=== PATIENT | male | born 1960 | race Caucasian/White ===

== ENCOUNTER 2016-07-11 20:15 | Inpatient (IN) | payer SELFPAY ==
--- NOTE | ~2016-07-11 | OP ---
Record Of [address] [place]. [address] NAME: DENITA BEAVER : 56 STATUS : ADM IN [facility]#: [id number] AGE: 55 ADM/REG DATE : 07/11/16 MR#: [id number] REPORT SERV DATE: 07/18/16 DICTATED BY: MICHELLE KELLY DATE: 07/18/16 REPORT STATUS : Draft TRANSCRIBED BY: MODL DATE: 07/18/16 DATE OF PROCEDURE: 07/18/2016 PREOPERATIVE DIAGNOSES: 1. New onset of chronic lymphocytic leukemia. 2. Right index finger Klebsiella oxytocin and Pseudomonas aeruginosa abscess, status post multiple I and D's. POSTOPERATIVE DIAGNOSES: 1. New onset of chronic lymphocytic leukemia. 2. Right index finger Klebsiella oxytocin and Pseudomonas aeruginosa abscess, status post multiple I and D's. PROCEDURES: Right index finger tip: 1. Repeat cultures. 2. Repeat irrigation and debridement. 3. Wound closure. SURGEON: Michelle Kelly M.D. ENVELOPE STAMPING MACHINE OPERATOR: Tate. ANESTHESIA: Local MAC. ESTIMATED BLOOD LOSS: 1 mL. COMPLICATIONS: None. DISPOSITION: The patient tolerated the procedure well and was brought to recovery room in stable condition. PROCEDURE NOTE: The patient was brought to the operating room and placed in supine position. After IV sedation was given, a surgical timeout was performed. All were in agreement. 15 mL of a solution containing 10 mL of 1% lidocaine plain and 10 mL of 0.5% Marcaine plain was then was injected at the base of the finger after prepping the area. Afterwards, the rest of the dressing was removed and the right upper extremity distal to the elbow was prepped and draped in the usual sterile manner. A finger tourniquet was placed at the base of the finger. The sutures were removed. Cultures were taken. Wound was inspected. A rongeur was used to remove just the edges of the tissue that was nonviable and then 1 L of normal saline was used to irrigate the wound via pulse lavage. The wound was closed with 3-0 nylon suture in the tourniquet cut, which was placed prior to removal of the sutures, was removed. A sterile dressing was applied and the patient was taken out of IV sedation and brought to recovery room in stable condition. Record Of [facility] [address] [place]. [address] NAME: DENITA BEAVER : 56 STATUS : ADM IN PAT#: [id number] AGE: 55 ADM/REG DATE : 07/11/16 MR#: [id number] REPORT SERV DATE: 07/18/16 DICTATED BY: MICHELLE KELLY DATE: 07/18/16 REPORT STATUS : Draft TRANSCRIBED BY: LEBRON DATE: 07/18/16 /LEBRON Michelle Kelly M.D. / [id number] CC: Jim Aviles MD
--- NOTE | ~2016-07-11 | HP ---
History And Physical [facility] [address] [facility] [place]. [address] NAME: DENITA BEAVER : 56 STATUS : ADM IN [facility]#: [id number] AGE: 55 ADM/REG DATE : 07/11/16 MR#: [id number] REPORT SERV DATE: 07/12/16 DICTATED BY: JOEL HACKETT DATE: 07/11/16 REPORT STATUS : Draft TRANSCRIBED BY: MODJeniffer DATE: 07/11/16 DATE OF ADMISSION: 07/11/2016 POINT OF ENTRY: [facility]. PRIMARY CARE PHYSICIAN: Mynor Molina [place]. CHIEF COMPLAINT: Right second finger swelling and pain. HISTORY OF PRESENT ILLNESS: Mr. Beaver is a 55-year-old gentleman with no significant previous medical history, who was recently admitted to a hospital down in [place], [place], where he lives for distal right second finger abscess requiring incision and drainage. The patient now presents with worsening swelling and pain of the same right second finger. The patient states that he was admitted on 07/04/2016 for right second finger distal swelling and pain, underwent what sounds like an I and D of an abscess on 07/05/2016 and then left against medical advice on 07/06/2016 as he needed to go to [place] to see his daughter graduate from medical school. The physicians at the hospital in [place] wanted him to stay for a bone marrow biopsy for what sounds to be as workup for leukopenia. The patient states that he was not discharged on any antibiotics or pain medications. Since leaving against medical advice, he has continued to wear a bandage most time as well as bathing his finger twice a day in peroxide solution. He denies any drainage from the finger or fevers, does state progressive worsening pain and swelling of the distal part of the right second finger prompting his presentation to the emergency department. Initial evaluation in the emergency department notable for a white count of 4700, however, an ANC of 90 with 93% lymphocytes. Remainder of his labs was otherwise unremarkable. X- rays were concerning for possible osteomyelitis of the distal tip of the right second finger. The patient was subsequently admitted to the Hospitalist Service for further evaluation and management. REVIEW OF SYSTEMS: Comprehensive review of systems otherwise negative unless listed in history of present illness. PREVIOUS MEDICAL HISTORY: Right second finger cellulitis and abscess status post I and D. SURGICAL HISTORY: 1. Right second finger I and D. 2. L4-L5 diskectomy and fusion x3. 3. Lens replacement. 4. Tonsillectomy. ALLERGIES: NO KNOWN DRUG ALLERGIES. History And Physical [address] [place]. [address] NAME: DENITA BEAVER : 56 STATUS : ADM IN PAT#: [id number] AGE: 55 ADM/REG DATE : 07/11/16 MR#: [id number] REPORT SERV DATE: 07/12/16 DICTATED BY: JOEL HACKETT DATE: 07/11/16 REPORT STATUS : Draft TRANSCRIBED BY: LEBRON DATE: 07/11/16 HOME MEDICATION: Ibuprofen 400 mg five times daily. SOCIAL HISTORY: Smokes about a half pack per day. Denies illicits. Does have one to two glasses of wine nightly. FAMILY MEDICAL HISTORY: Mother with diabetes. Father , but not sure what he passed from. Siblings with diabetes as well as end-stage renal disease secondary to diabetes. LABORATORIES AND IMAGIN. White count is 4.7, hemoglobin is 7.8, hematocrit is 31.2, platelet count is 157 with 93% lymphocytes and ANC of 90. 2. Lactic acid 0.7. 3. Sodium is 139, potassium 4.1, chloride 105, carbon dioxide 31, BUN 18, creatinine 1.04, glucose is 96, calcium is 8.7, protein 6.2, albumin is 3.6, bilirubin is 0.4, ALT is 28, AST 11, alkaline phosphatase is 113, lactic acid 0.7. 4. Right hand films per my review shows swelling of the distal tip of the right second finger with some concern for cortical volume loss. We will need to follow up formal Radiology read. PHYSICAL EXAMINATION: VITAL SIGNS: Temperature is 98.2 degrees Fahrenheit, pulse is 89, respirations 20, saturating 98% on room air, and blood pressure 103/58. GENERAL: The patient is awake, alert, in no acute distress, resting comfortably in bed. He is a well-developed and well-nourished male. HEENT: Atraumatic and normocephalic. Moist mucous membranes. Pupils equal, round, reactive to light and accommodation. Extraocular eye movements are intact. No scleral icterus. NECK: No jugular venous distention. No carotid bruits. CARDIAC: Regular rate and rhythm. No murmurs, rubs, or gallops. Normal S1 and S2. LUNGS: Clear to auscultation bilaterally. No wheezes, rhonchi, or rales. ABDOMEN: Soft, nontender, nondistended with good bowel sounds. No rebound, guarding, or rigidity. EXTREMITIES: Warm and well perfused. No cyanosis, clubbing, or edema. The right second finger distal tip does show some diffuse swelling. Evidence of prior incision and drainage underneath the nail bed is evident. There is no palpable fluid collection or subcutaneous air, does not appreciate any spontaneous purulent drainage. It is definitely tender to palpation, but no evidence of any lymphangitic spread. NEURO: Alert and oriented x3. Cranial nerves II through XII grossly intact. Speech is normal. Gait not assessed. ASSESSMENT: Mr. Beaver is a 55-year-old male, who presents with persistent versus recurrent distal right second finger infection and abscess with concern for possible osteomyelitis, also instantly found to have evidence of neutropenia. PROBLEM LIST: 1. Right second finger infection and abscess with concern for osteomyelitis. 2. Neutropenia. History And Physical [address] [address] NAME: DENITA BEAVER : 56 STATUS : ADM IN [facility]#: [id number] AGE: 55 ADM/REG DATE : 07/11/16 MR#: [id number] REPORT SERV DATE: 07/12/16 DICTATED BY: JOEL HACKETT DATE: 07/11/16 REPORT STATUS : Draft TRANSCRIBED BY: LEBRON DATE: 07/11/16 3. Active tobacco abuse. PLAN: 1. Right second finger infection. We will place the patient empirically on broad-spectrum antibiotics of IV vancomycin and Zosyn given evidence of neutropenia. We will follow up blood cultures as well as obtain wound culture. We will consult Orthopedic Hand Surgery, Dr. Londono, who was contacted the ER by the medical staff here and will see the patient in the morning. We will make the patient nothing by mouth after midnight in the event the patient may need further debridement or incision and drainage. Checking ESR and CRP given concern for possible osteomyelitis. 2. Neutropenia, unclear etiology at this time of what caused neutropenia. His white count is within normal limits. He does have 93% lymphocytes as well as the patient reports a prior history of leukopenia at [facility] a week ago. We will try to obtain outside records from [facility]. We will consult Hematology for assistance. Place him on neutropenic precautions. 3. DVT prophylaxis. Lovenox subcutaneously. CODE STATUS: The patient wished to be full code. JCB/MODL Joel Hackett MD / [id number]
--- NOTE | ~2016-07-11 | OP ---
Record Of Operation [facility] [address] [place]. 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 PROCEDURE: 1. Right index finger. a. Repeat cultures. b. Distal P3 bone excision. 2. Wound closure. CELLO TEACHER: Cayetano Londono. ANESTHESIA: General. ESTIMATED BLOOD LOSS: Less than 1 mL. COMPLICATIONS: None. DISPOSITION: Patient tolerated the procedure well and was brought to the recovery room in stable condition. PROCEDURE NOTE: The patient was brought to the operating room and placed in supine position. After general anesthesia was administered. A pneumatic tourniquet was placed around the right proximal arm, and the right upper extremity distal to the tourniquet was exsanguinated and the tourniquet was inflated. The dressing was removed and the right upper extremity distal to the tourniquet was prepped and draped in usual sterile manner. A surgical timeout was performed and all were in agreement. Sutures were removed. Cultures were taken and a rongeur was used to debride the soft tissue as well as the remaining P3 bone. Afterwards, the wound was irrigated with a total of 3 L of normal saline via pulse lavage and then the skin edges were trimmed back, and the skin was closed with 3-0 nylon suture. A sterile dressing was applied and tourniquet was released. The patient tolerated the procedure well and was brought to the recovery room in stable condition. RM/LEBRON Michelle Kelly M.D. Record Of Operation [address] [address] NAME: DENITA BEAVER : 56 STATUS : ADM IN PAT#: [id number] AGE: 55 ADM/REG DATE : 07/11/16 MR#: [id number] REPORT SERV DATE: 07/14/16 DICTATED BY: MICHELLE KLELY DATE: 07/14/16 REPORT STATUS : Draft TRANSCRIBED BY: MODL DATE: 07/14/16 / [id number] CC: Harsh Arrieta MD
--- NOTE | ~2016-07-11 | HP ---
History And Physical [address] [place]. [address] NAME: RUDDY BEAVER : 56 STATUS : DIS IN PAT#: [id number] AGE: 55 ADM/REG DATE : 07/11/16 MR#: [id number] REPORT SERV DATE: 07/27/16 DICTATED BY: MICHELLE KELLY DATE: 07/12/16 REPORT STATUS : Draft TRANSCRIBED BY: MODL DATE: 07/12/16 DATE OF ADMISSION: 07/11/2016 REASON: Right index finger abscess with osteomyelitis at distal tip and neutropenia. 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 Sometime around between two to three weeks ago, he clipped his right index finger nail slightly close causing a little bleeding in the area. Then, sometime later, on 06/27/2016, he developed some problems with his gingivitis with an abscess and was started on amoxicillin as predicated by this . He rubbed the area of concern in his mouth with both index fingers, and this most likely to have inoculated his right index finger at the nail bed area. Over the next ensuing days, he started experiencing redness, pain, and swelling. He was admitted to the [facility] in [facility]. His white count upon admission was 3.3, and he later underwent an I and D of the right index finger by Dr. Mcdonough, hand surgeon. Subsequent white counts as per patient were 4.7, and then sometime later 2.2. He was treated with Zosyn and vancomycin. He was then sent to this hospital and admitted late evening 07/11/2016 for worsening index finger abscess and pain. White count upon admission was 4.7. X-rays were taken at the time of admission showed swelling in the index finger with concern of osteomyelitis. He underwent a bone marrow biopsy earlier today by Dr. Jeff Medeiros, pathologist, here at [facility] with results pending. In addition to a low white count, he is noted to have decreased hemoglobin, hematocrit, and platelets with the platelets being 142 and H and H 10.3 and 29.8. He denies any recent fever, chills, or any other open sores. PAST MEDICAL HISTORY: None except recently diagnosed pancytopenia-workup in progress. PAST SURGICAL HISTORY: Left eye lens implant six months ago, tonsillectomy and adenoidectomy age 3 and back surgery x3. SOCIAL HISTORY: Smokes half pack per day. Positive for EtOH but negative for recreational drug use. He is and his of 3 years, Jammie, they have 9 children ages 30 to 16. PHYSICAL EXAMINATION: VITALS: Temperature 98.2, respirations 16 and BP 103/58. GENERAL: Pleasant, concerned 55-year-old white male lying in bed, with a swollen tender finger, in no acute distress. HEENT: Normocephalic. Teeth with some evidence of gingivitis. Pharynx not injected. Sclerae anicteric. ABDOMEN: Soft, nontender. CARDIOVASCULAR: 2+ radial and ulnar pulses. 2+ DP and PT pulses. MUSCULOSKELETAL EXAM: C-spine nontender. Both shoulders, elbows, wrists, and all fingers except for the right index fingers with functional range of motion. Both hips, knees, and ankles with functional range of motion. Right index finger is swollen, and there is necrotic tissue at the tip. The nail plate is bulging up, and there was pus emanating from History And Physical [address] [place]. [address] NAME: RUDDY BEAVER : 56 STATUS : DIS IN PAT#: [id number] AGE: 55 ADM/REG DATE : 07/11/16 MR#: [id number] REPORT SERV DATE: 07/27/16 DICTATED BY: MICHELLE KELLY DATE: 07/12/16 REPORT STATUS : Draft TRANSCRIBED BY: MODL DATE: 07/12/16 the nail bed region. The distal tip has necrotic tissue and the redness goes up to the PIP level. There is decreased sensation in the finger. LABORATORY DATA: White count of 4.7, H and H 10.8 and 32.2, platelets 142. X-rays, multiple views, right hand portable, shows index finger swelling with loss of bone, definition of the P3 bone in keeping with osteomyelitis. IMPRESSION: 1. Pancytopenia of unclear etiology, workup in progress. 2. Right index finger abscess with osteomyelitis. PLAN: The patient will undergo multiple I and D's to eradicate this infection. He most likely require an amputation with definitive level to be determined by intraoperative findings. This was discussed with Ruddy and his , Jammie, and the risks and benefits of surgery to include , stroke, heart attack, worsening pain, and need for operations after healing the wounds were all discussed. No guarantees were made in regard to the ultimate success of the operation. He wished to proceed with surgery and will plan for this shortly. LEATHA/LEBRON Michelle Kelly M.D. / [id number] CC: Harsh Arrieta MD
--- NOTE | ~2016-07-11 | OP ---
Record Of Operation [facility] [address] [place]. [address] NAME: DENITA BEAVER : 56 STATUS : ADM IN [facility]#: [id number] AGE: 55 ADM/REG DATE : 07/11/16 MR#: [id number] REPORT SERV DATE: 07/13/16 DICTATED BY: MICHELLE KELLY DATE: 07/12/16 REPORT STATUS : Draft TRANSCRIBED BY: MODL DATE: 07/12/16 DATE OF PROCEDURE: 07/12/2016 PREOPERATIVE DIAGNOSES: 1. Pancytopenia of unclear etiology - workup in progress. 2. Right index finger abscess with tip necrosis and P3 osteomyelitis. POSTOPERATIVE DIAGNOSES: 1. Pancytopenia of unclear etiology - workup in progress. 2. Right index finger abscess with tip necrosis and P3 osteomyelitis. PROCEDURES: Right index finger: 1. Cultures. 2. Debridement of tissue and bone resulting in distal tip amputation. 3. Wound packing with vancomycin powder. SURGEON: Michelle Kelly M.D. ANESTHESIA: General. ESTIMATED BLOOD LOSS: 2 mL. COMPLICATIONS: None. SPECIMENS: Cultures of mid P3 bone was sent to microbiology and pathology with the latter to rule out osteomyelitis. DISPOSITION: The patient tolerated the procedure well and was brought to recovery room in stable condition. PROCEDURE NOTE: The patient was brought to the operating room and placed in supine position. After general anesthesia was administered, the right upper extremity distal to the elbow was prepped and draped in the usual sterile manner. A surgical time-out was performed, and all were in agreement. A finger tourniquet was placed at the base of the finger, and a 15-blade scalpel was then used to unroof the nail plate, which was bulging. Very minimal pus was noted from the area and the tissue was swollen. The P3 bone was soft and was easily cut by the knife, which was used to debride the area. A rongeur was then used to cut back the bone until firmer bone was reached in the more mid/proximal third of the bone. This bone was sent to pathology, and the rest of the tissue was sent for specimens. The wound was then irrigated with 3 L of pulse lavage, and the volar flap was contoured and then sewn back onto the dorsal skin after packing the area with vancomycin powder and removing the dorsal nail sterile matrix. Tourniquet was released. A sterile dressing was applied, and the patient was taken out of general anesthesia and brought to recovery room in stable condition. Record Of Operation [place] [place]. [address] NAME: DENITA BEAVER : 56 STATUS : ADM IN [facility]#: [id number] AGE: 55 ADM/REG DATE : 07/11/16 MR#: [id number] REPORT SERV DATE: 07/13/16 DICTATED BY: MICHELLE KELLY DATE: 07/12/16 REPORT STATUS : Draft TRANSCRIBED BY: LEBRON DATE: 07/12/16 /LEBRON Michelle Kelly M.D. / [id number]
--- NOTE | ~2016-07-11 | IDS ---
Interim Discharge Summary [facility] [address] [place]. [address] NAME: DENITA BEAVER : 56 STATUS : ADM IN [facility]#: [id number] AGE: 55 ADM/REG DATE : 07/11/16 MR#: [id number] REPORT SERV DATE: 07/19/16 DICTATED BY: CANDICE ARRIETA DATE: 07/17/16 REPORT STATUS : Draft TRANSCRIBED BY: MODL DATE: 07/17/16 ADMISSION DATE: 07/11/2016 DISCHARGE DATE: REASON FOR ADMISSION: Right 2nd digit osteomyelitis and pancytopenia. HISTORY OF PRESENT ILLNESS: Please refer Dr. Simental's history and physical dated 07/12/2016, for complete details regarding the patient's admission. In brief, the patient was admitted to hospice service for management and evaluation of his right 2nd digit cellulitis/osteomyelitis along with pancytopenia. HOSPITAL COURSE: Several issues were addressed. 1. Right 2nd finger cellulitis/osteomyelitis. The patient had a known I and D done down at [facility] for a cellulitis but was not diagnosed with an osteomyelitis at that time. He presented with worsening infection to this hospital as he was in town visiting his [id number]. Dr. Albert with Orthopedic hand was consulted. He had performed an I and D x2 with the first culture showing dual infection with Klebsiella and Pseudomonas. He had a repeat I and D done 2 days later on the which showed just sparse growth of Pseudomonas. He had been placed initially on vancomycin and Zosyn which was then tailored to Zosyn. Infectious Disease was consulted. Dr. Tucker had been following the patient for the past couple of days. His Zosyn has been discontinued as of 07/17/2016, with the initiation of oral ciprofloxacin which I anticipate is what the patient will go home with. Given by that he had a few sparse growth of Pseudomonas, I wonder if he may need a 3rd debridement but we will let Dr. Albert make that decision. 2. Pain secondary to osteomyelitis and infection, it is now controlled on narcotics. 3. Pancytopenia. The patient was diagnosed with pancytopenia when he was at [facility] but did not stay to get a bone marrow biopsy. Hematology and Oncology was consulted. He had a bone marrow biopsy done late last week. We are still waiting on the final pathology but is concerning for a possible lymphoma. He is getting a PET scan done today and hopefully by the end of the day, we will have a better idea of whether or not if he will need to be initiated on chemotherapy. Dr. Holland has been following his care in the hospital. DISPOSITION: Final disposition will be home pending any further debridements, and the patient has expressed that he can fly back and forth to have cancer treatment if desired or to follow up with an oncologist in or near [place]. Fortunately, we will be able to treat his osteomyelitis with oral ciprofloxacin instead of needing IV. Final disposition per Dr. Aviles who will assume care of this patient on 07/17/2016. INTERIM DIAGNOSES: 1. Right finger cellulitis/osteomyelitis with necrosis status post I and D x2. 2. Pancytopenia secondary to lymphoma. 3. Constipation. 4. Finger pain. PROCEDURES: Include consultation with Dr. Tucker, Infectious Disease; consultation with Interim Discharge Summary [address] [address] NAME: DENITA BEAVER : 56 STATUS : ADM IN [facility]#: [id number] AGE: 55 ADM/REG DATE : 07/11/16 MR#: [id number] REPORT SERV DATE: 07/19/16 DICTATED BY: CANDICE ARRIETA DATE: 07/17/16 REPORT STATUS : Draft TRANSCRIBED BY: MODL DATE: 07/17/16 Rohini Albert; consultation with Dr. Merrill Holland Hematology/Oncology. I and D x2. KARIN/LEBRON Candice Arrieta MD / [id number] CC: Candice Arrieta MD
--- NOTE | ~2016-07-11 | DS ---
Discharge Summary [facility] [address] [place] [place]. [address] NAME: DENITA BEAVER : 56 STATUS : DIS IN PAT#: [id number] AGE: 55 ADM/REG DATE : 07/11/16 MR#: [id number] REPORT SERV DATE: 07/22/16 DICTATED BY: SARAH CHIU DATE: 07/21/16 REPORT STATUS : Draft TRANSCRIBED BY: MODL DATE: 07/21/16 ADMISSION DATE: 07/11/2016 DISCHARGE DATE: 07/21/2016 ADDENDUM: This dictation is an addition to interim discharge summary dictated by Dr. Arrieta on 07/19/2016. The patient was taken back to the OR for right finger cultures, debridement, and samples to ensure there was no more source of infection. Status post procedure, the patient was returned back to the medical floor. He has remained hemodynamically stable. The patient has been placed on antibiotic therapy ciprofloxacin for about two weeks and given that he is cleared from ID standpoint. Orthopedic Surgery has completed management of his index finger. Given completion of workup and hemodynamic stability, the patient will subsequently be discharged today. DISCHARGE MEDICATIONS: Include is Cipro 500 mg p.o. twice a day for approximately two weeks. For pain, Percocet 10/325 q.6 hours p.r.n. and also ibuprofen as needed. All other information on interim discharge summary remains the same. DICTATED BY: MD JAVI Mitchell/LEBRON Sarah Chiu MD / [id number] CC: Sarah Chiu MD
--- NOTE | ~2016-07-11 | CN ---
Consultation Report [facility] [address] [place]. [address] NAME: DENITA BEAVER : 56 STATUS : ADM IN [facility]#: [id number] AGE: 55 ADM/REG DATE : 07/11/16 MR#: [id number] REPORT SERV DATE: 07/13/16 DICTATED BY: MERRILL AMOS DATE: 07/12/16 REPORT STATUS : Draft TRANSCRIBED BY: MODL DATE: 07/12/16 DATE OF CONSULTATION: 07/12/2016 REASON FOR CONSULTATION: Pancytopenia. REFERRING PHYSICIAN: Harsh Arrieta MD HISTORY: Mr. Beaver is a 55-year-old man, who has been in his usual state of relatively good health up until 07/04/2016 when he presented with evidence of a right lower tooth abscess to his hospital in [place], [place]. He had been on ampicillin initially and was noted to have a low white blood cell count with evidence of cellulitis involving the right index finger. He was not having any fever or shaking chills. He had attributed secondary infection of his index finger from probing the abscessed tooth. He noted that the dental infection improved on the ampicillin, but his finger did not. His white blood cell count on 07/06/2016 had decreased to 2.2 and he had undergone debridement of the right index finger on 07/05/2016 with partial removal of the nail and antibiotics were switched to vancomycin and Zosyn. On 07/07/2016, he left the [facility] against medical advice to go to [place], [place] to attend his daughter's graduation from medical school. He was not on any antibiotic during this time, and again not having any fevers or chills. He had traveled back from [place] to [place], [place] where he was staying with family member and came to the ER here at [facility] because of increasing severe pain and swelling of the right index finger. He was admitted on 07/11/2016 and vancomycin and Zosyn presumed. CBC done here on 07/11/2016 revealed a white count of 4700, with 2% bands, 93% lymphocytes, and 5% monocytes with a neutrophil count of only 90. Hemoglobin was 10.8, hematocrit 31.2, MCV was normal at 90, RDW normal at 13.2, platelet count 157,000. Repeat CBC today revealed a white blood count of 4200, hemoglobin 10.3, hematocrit 29.8, and platelet count 142,000 with a sedimentation rate of 18. His CMP on admission was normal with a low procalcitonin level, iron saturation of just over 10% with a ferritin 255, and TSH normal. LDH was normal at 180, folate and B12 normal. C-reactive protein was elevated at 64.3. Since admission, he has remained afebrile, but complaining of pain involving the index finger throbbing with his heartbeat. PAST MEDICAL AND SURGICAL HISTORY: Significant for the recent dental abscess and cellulitis/abscess of the index finger, status post I and D on 07/05/2016 at the hospital in [place], [place]. He has a history of chronic periodontal disease. He is status post L4 5 diskectomy and fusion x3, status post cataract replacement, status post tonsillectomy. MEDICATIONS: Medications prior to admission included ibuprofen 400 mg four to five times per day. ALLERGIES: DENIES ANY SPECIFIC MEDICATION ALLERGIES. SOCIAL HISTORY: He lives in [place], [place]. Smokes about half a pack of cigarettes per day. Drinks 1 to 2 glasses of wine in the evenings. Denies any illicit drug use. He is x2 and has grown children. Consultation Report [address] [place]. [address] NAME: DENITA BEAVER : 56 STATUS : ADM IN [facility]#: [id number] AGE: 55 ADM/REG DATE : 07/11/16 MR#: [id number] REPORT SERV DATE: 07/13/16 DICTATED BY: MERRILL AMOS DATE: 07/12/16 REPORT STATUS : Draft TRANSCRIBED BY: LEBRON DATE: 07/12/16 FAMILY HISTORY: Mother had a history of diabetes. Father is . Siblings had diabetes and renal failure. REVIEW OF SYSTEMS: A 13-point review of systems as per HPI. Otherwise, unremarkable and/or negative. Remarkable negative review of systems would include no recent weight loss. Again no fevers, no night sweats, no new bone pain other than related to the index finger. No history of diarrhea. No unusual headaches. PHYSICAL EXAMINATION: VITAL SIGNS: Currently afebrile with normal vital signs. GENERAL: He is a well-developed, well-nourished man, in no acute distress. Alert, oriented x3. HEENT: With NCAT. Sclerae anicteric. Oropharynx without visible lesions. The teeth appear intact without any abscess evident at this time. NECK: No JVD, bruits. Palpable thyromegaly. No palpable adenopathy. No fluctuance. Full range of motion. HEART: Regular rate and rhythm without murmurs, gallops, or rubs. LUNGS: Clear to auscultation and percussion. ABDOMEN: With active bowel sounds. Soft and nontender. No palpable organomegaly or masses. EXTREMITIES: Without cyanosis, clubbing, or edema except for the right index finger which has moderate induration of the proximal index finger on the right, but extending to severe swelling at the nail bed area with moderate erythema, no discharge but palpable warmth. Skin without any jaundice, rash, petechiae, or purpura except as per the index finger examination. LYMPH NODE SURVEY: Without palpable cervical, supraclavicular, axillary, or inguinal nodes. NEUROLOGIC EXAMINATION: Grossly intact. Patient is sitting up in bed. LABORATORY DATA: As per HPI. ASSESSMENT: Mr. Beaver is a man with clinical evidence of cellulitis involving the right index finger suspicious on x-ray to have possible osteomyelitis. He has marked neutropenia documented on his admission to [facility] on 07/04/2016, where it was recommended he have a bone marrow biopsy. CBC is now evolving to have pancytopenia with persistence of the neutropenia. He is not aware of any history of anemia or other cytopenias in the past. Differential diagnosis certainly includes a primary bone marrow based disorder such as leukemia, lymphoma, aplastic anemia, myelodysplasia or some other marrow suppressive events. He does have a history of some chemical exposures back in the 1980s including benzene, therefore this could be a secondary malignancy from prior exposures and certainly acute leukemia would be in the differential. He has no evidence of any B12 or folate deficiency, iron saturation is borderline. RECOMMENDATION: My recommendation will be to proceed with a bone marrow aspirate and biopsy to evaluate the severe neutropenia and new-onset pancytopenia. We will check a serum Consultation Report [address] [place]. [address] NAME: DENITA BEAVER : 56 STATUS : ADM IN [facility]#: [id number] AGE: 55 ADM/REG DATE : 07/11/16 MR#: [id number] REPORT SERV DATE: 07/13/16 DICTATED BY: MERRILL AMOS DATE: 07/12/16 REPORT STATUS : Draft TRANSCRIBED BY: LEBRON DATE: 07/12/16 protein electrophoresis, as well as quantitative immunoglobulins. Bone marrow will be handled through routine evaluation of pancytopenia, but given the recent infections also cultures and Gram stain, fungal stain, and probably AFB stain should be performed. Final recommendations would depend upon the bone marrow biopsy results. Obviously if leukemia were discovered, the patient would likely need to be transferred closer to home to receive treatment as you would likely require hospitalization for up to a month if AML is evident. The patient agreed to proceed with bone marrow biopsy as explained. RENA/LEBRON Merrill Amos M.D. / [id number] CC: Harsh Arrieta MD
--- NOTE | ~2016-07-11 | CN ---
Consultation Report [facility] [address] [place]. [address] NAME: DENITA BEAVER : 56 STATUS : ADM IN [facility]#: [id number] AGE: 55 ADM/REG DATE : 07/11/16 MR#: [id number] REPORT SERV DATE: 07/15/16 DICTATED BY: ARVIND CRUZ DATE: 07/14/16 REPORT STATUS : Draft TRANSCRIBED BY: MODL DATE: 07/14/16 INFECTIOUS DISEASE CONSULT DATE OF CONSULTATION: REASON FOR CONSULT: Finger abscess and osteomyelitis. HISTORY OF PRESENT ILLNESS: A 55-year-old white male with history of tonsillectomy and L4-L5 fusion surgery, who was recently admitted in [place] for a right index finger abscess. Prior to that, he took some amoxicillin on his own for a presumed tooth infection. He is about four days. He has history of periodontal disease. He developed a lesion black or dark area on the right index finger nail that enlarged and then caused distal finger swelling and eventually purulent drainage. He went to the hospital which he remembers as [facility] where he was admitted around the 07/04/2016. There he was found to have leukopenia and had surgery on his finger. It was thought that he might have a form of leukemia and he needed a bone marrow biopsy. He does not know the results of the surgical cultures from his finger, but he thinks he received vancomycin and Zosyn there. So, he thinks he was seen once by an infectious disease physician. He had to leave the hospital, and although he wanted to return the following week, he was discharged AMA without any antibiotics. He had to leave because his daughter was graduating from medical school in [facility]. He flew to [place] and drove to [place] where he attended the graduation. Then, he started driving down south and he stopped near [place] where his in-laws leave. By then, the right index finger was very tender and swollen, so he ended up here at the hospital and was admitted. On admission, WBC was 4.7, but with 93% lymphocytes, hemoglobin 7.8, platelets 157, creatinine 1.0, lactic acid 0.7. Apparently, there was pus at the nail bed and redness up to the PIP joint. He was started on vancomycin and Zosyn. Admission blood cultures were negative. Dr. Maxx Albert with Hand Surgery was consulted and he did two debridements on the 07/12/2016 and 07/14/2016. Initially, he found an index finger tip abscess with necrosis and osteomyelitis of the distal phalanx. He did bone debridement. There were three cultures, one was negative and two labelled as fluid and tissue cultures from the index finger growing two gram negative rods. The Gram stain on the fluid specimen had gram-positive cocci in pairs. The other one had no organisms. Today, he had a repeat I and D and apparently looked better. Meanwhile, he was seen in consult by our Hematology-Oncology because of severe leukopenia. He had a bone marrow biopsy on the 07/12/2016. The culture from that is negative, but apparently, the pathology suggestive of B-cell lymphoma. LAB WORK: Shows low levels of immunoglobulin G, M, and A. HIV screen was negative. Today, WBC 5.9, segments 32, bands 2, platelets 148. REVIEW OF SYSTEMS: The patient reported no fever during this illness. No nausea or vomiting. No shortness of breath. No urinary symptoms. No other skin lesions. He is constipated now. Consultation Report [address] [place]. [address] NAME: DENITA BEAVER : 56 STATUS : ADM IN [facility]#: [id number] AGE: 55 ADM/REG DATE : 07/11/16 MR#: [id number] REPORT SERV DATE: 07/15/16 DICTATED BY: ARVIND CRUZ DATE: 07/14/16 REPORT STATUS : Draft TRANSCRIBED BY: LEBRON DATE: 07/14/16 PAST MEDICAL HISTORY: As I mentioned above plus lens surgery, tonsillectomy. SOCIAL HISTORY: He is a smoker. He does not abuse alcohol. Does not use drugs. He does not think. He is at risk for HIV infection. 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 FAMILY HISTORY: Diabetes and kidney failure. ALLERGIES: NONE. MEDICATIONS ON ADMISSION: Ibuprofen as needed. PHYSICAL EXAMINATION: GENERAL: He is alert, awake. He has multiple dental fillings. EYES: His sclerae are white. LUNGS: Clear to auscultation anteriorly. HEART: Regular rhythm. ABDOMEN: Soft, nontender. Right hand is bandaged. EXTREMITIES: Feet without lesions. ASSESSMENT AND PLAN: 1. Distal right index finger abscess and osteomyelitis, status post at least three debridements, initially in [place] then in [place]. Cultures here are growing 2 gram negative rods. Although 1 of the Gram stains had gram-positive cocci. We will try to request a culture from [place]. 2. Newly diagnosed B-cell lymphoma with neutropenia and hypogammaglobulinemia. He has been given vancomycin and Zosyn. Could continue this pending culture results. We will need to discuss with Dr. Albert the operative findings and decide on the duration of treatment. He is going to go back to [place] the next week. I discussed with the patient. PC/MODL Arvind Cruz M.D. / [id number] CC: Harsh Arrieta MD
[2016-07-11 21:28] LABS: BASOPHILS 0.4 %; BASOPHILS ABSOLUTE 0.02 10/3/uL (0.0-0.16); EOSINOPHILS 0 %; HEMATOCRIT 31.2 % (40.0-51.0); HEMOGLOBIN 10.8 g/dL (13.6-17.8); LYMPHOCYTES 82.2 %; LYMPHOCYTES ABSOLUTE 3.86 10/3/uL (0.67-4.30); MEAN CORPUS HGB CONC 34.6 g/dL (32.0-36.0); MEAN CORPUSCULAR HEMOGLOB 31.2 pg (26.0-34.0); MEAN CORPUSCULAR VOLUME 90.2 fL (80-100); MEAN PLATELET VOLUME 9.2 fL (9.2-13.0); MONOCYTES 17.4 %; MONOCYTES ABSOLUTE 0.82 10/3/uL (0.21-1.20); NEUTROPHILS 0 %; PLATELET COUNT 157 10/3/uL (150-400); RBC DISTRIBUTION WIDTH 13.2 % (12.0-16.0); RED CELL COUNT 3.46 10/6/uL (4.7-6.1); WHITE BLOOD CELLS 4.7 10/3/uL (4.5-10.5)
[2016-07-11 21:29] LABS: MANUAL DIFF NO %
[2016-07-11 21:37] LABS: LACTATE 0.7 MMOL/L (0.3-2.4)
[2016-07-11 21:45] LABS: A/G RATIO 1.4 (0.7-1.9); ALBUMIN 3.6 G/DL (3.5-5.0); ALKALINE PHOSPHATASE 113 U/L (45-117); BUN (BLOOD UREA NITROGEN) 18 MG/DL (6-23); CALCIUM, SERUM 8.7 MG/DL (8.5-10.4); CHLORIDE, SERUM 105 MMOL/L (96-112); CO2 (CARBON DIOXIDE) 31 MMOL/L (24-34); CREATININE 1.04 MG/DL (0.70-1.30); GFR AFRICAN AMERICAN 92 ML/MIN (>=60); GFR NON AFRICAN AMERICAN 79 ML/MIN (>=60); GLOBULIN 2.6 G/DL (2.5-4.1); GLUCOSE, SERUM 96 MG/DL (60-99); POTASSIUM, SERUM 4.1 MMOL/L (3.5-5.3); SGOT(AST) 11 U/L (5-40); SGPT(ALT) 28 U/L (5-65); SODIUM, SERUM 139 MMOL/L (135-148); TOTAL BILIRUBIN 0.4 MG/DL (0-1.2); TOTAL PROTEIN 6.2 G/DL (6.0-8.5)
[2016-07-11 21:54] LABS: BAND NEUTROPHILS 2 %; ER DIFF TAT 0 Hrs 32 Mins; LYMPHOCYTES 93 %; LYMPHOCYTES ABSOLUTE (CALC) 4.37 10/3/uL (0.67-4.30); MONOCYTES 5 %; MONOCYTES ABSOLUTE (CALC) 0.24 10/3/uL (0.21-1.20); NEUTROPHILS ABSOLUTE (CALC) 0.09 10/3/uL (2.02-8.40); PLATELET ESTIMATE ADQ (ADEQUATE); TOTAL NUCLEATED CELLS 100
[2016-07-11 21:55] LABS: RBC MORPHOLOGY NORM (NORMAL)
[2016-07-11 22:15] LABS: PATH REVIEW YES
[2016-07-11] MEDS ORDERED: IBU400 PO (22:29)
[2016-07-12 01:49] LABS: RETICULOCYTE COUNT 2.6 % (0.5-2.9); RETICULOCYTE COUNT ABSOLUTE 87.5 10/3/uL (20.2-119.8)
[2016-07-12 02:10] LABS: FERRITIN 255 NG/ML (26-388); FREE T4 1.47 NG/DL (0.76-1.46); IRON BINDING CAPACITY 242 MCG/DL (250-450); IRON, SERUM 28 MCG/DL (35-150)
[2016-07-12 02:58] LABS: PROCALCITONIN <0.05 ng/mL (<0.5)
[2016-07-12 06:12] LABS: HEMATOCRIT 29.8 % (40.0-51.0); HEMOGLOBIN 10.3 g/dL (13.6-17.8); MEAN CORPUS HGB CONC 34.6 g/dL (32.0-36.0); MEAN CORPUSCULAR HEMOGLOB 31.4 pg (26.0-34.0); MEAN CORPUSCULAR VOLUME 90.9 fL (80-100); MEAN PLATELET VOLUME 9.5 fL (9.2-13.0); PLATELET COUNT 142 10/3/uL (150-400); RBC DISTRIBUTION WIDTH 12.9 % (12.0-16.0); RED CELL COUNT 3.28 10/6/uL (4.7-6.1); WHITE BLOOD CELLS 4.2 10/3/uL (4.5-10.5)
[2016-07-12 06:14] LABS: MANUAL DIFF YES %
[2016-07-12 06:54] LABS: BUN (BLOOD UREA NITROGEN) 15 MG/DL (6-23); C-REACTIVE PROTEIN 64.3 MG/L (<8.0); CALCIUM, SERUM 8.3 MG/DL (8.5-10.4); CHLORIDE, SERUM 108 MMOL/L (96-112); CO2 (CARBON DIOXIDE) 27 MMOL/L (24-34); CREATININE 0.88 MG/DL (0.70-1.30); FOLATE 14.8 NG/ML (>5.2); GFR AFRICAN AMERICAN 111 ML/MIN (>=60); GFR NON AFRICAN AMERICAN 95 ML/MIN (>=60); GLUCOSE, SERUM 95 MG/DL (60-99); POTASSIUM, SERUM 4.1 MMOL/L (3.5-5.3); SODIUM, SERUM 141 MMOL/L (135-148)
[2016-07-12 07:18] LABS: SED RATE 18 MM/HR (0-15)
[2016-07-12 07:25] LABS: PATH REVIEW SEE PATHOLOGY REPORT
[2016-07-12 07:49] LABS: LYMPHOCYTES 78 %; LYMPHOCYTES ABSOLUTE (CALC) 3.28 10/3/uL (0.67-4.30); MONOCYTES 20 %; MONOCYTES ABSOLUTE (CALC) 0.84 10/3/uL (0.21-1.20); NEUTROPHILS ABSOLUTE (CALC) 0.08 10/3/uL (2.02-8.40); PLATELET ESTIMATE DEC (ADEQUATE); RBC MORPHOLOGY NORM (NORMAL); SEGMENTED NEUTROPHIL (0) 2 %; TOTAL NUCLEATED CELLS 100
[2016-07-12 11:20] LABS: T PROTEIN (ELECT)(NOT OR 5.1 G/DL (6.0-8.5)
[2016-07-12 11:50] LABS: IMMUNOGLOBULIN A 68 MG/DL (70-420); IMMUNOGLOBULIN G 352 MG/DL (673-1464); IMMUNOGLOBULIN M 8 MG/DL (30-270)
[2016-07-13 06:37] LABS: HEMATOCRIT 31.7 % (40.0-51.0); HEMOGLOBIN 11.2 g/dL (13.6-17.8); MEAN CORPUS HGB CONC 35.3 g/dL (32.0-36.0); MEAN CORPUSCULAR HEMOGLOB 31.4 pg (26.0-34.0); MEAN CORPUSCULAR VOLUME 88.8 fL (80-100); MEAN PLATELET VOLUME 9.9 fL (9.2-13.0); PLATELET COUNT 163 10/3/uL (150-400); RBC DISTRIBUTION WIDTH 12.3 % (12.0-16.0); RED CELL COUNT 3.57 10/6/uL (4.7-6.1); WHITE BLOOD CELLS 3.2 10/3/uL (4.5-10.5)
[2016-07-13 06:39] LABS: MANUAL DIFF YES %
[2016-07-13 07:46] LABS: BAND NEUTROPHILS 2 %; LYMPHOCYTES 80 %; LYMPHOCYTES ABSOLUTE (CALC) 2.56 10/3/uL (0.67-4.30); MONOCYTES 6 %; MONOCYTES ABSOLUTE (CALC) 0.19 10/3/uL (0.21-1.20); NEUTROPHILS ABSOLUTE (CALC) 0.45 10/3/uL (2.02-8.40); PLATELET ESTIMATE ADQ (ADEQUATE); RBC MORPHOLOGY NORM (NORMAL); SEGMENTED NEUTROPHIL (0) 12 %; TOTAL NUCLEATED CELLS 50
[2016-07-13 09:22] LABS: A/G 1.87 RATIO (0.9-2.10); ALB RELATIVE % 65.1 % (60.0-89.0); ALBUMIN (ELECTRO) 3.32 GM/DL (3.2-5.5); ALPHA 1 (ELECTRO) 0.22 GM/DL (0.1-0.4); ALPHA 1 RELAT % (NOT ORD) 4.4 % (1.0-4.0); ALPHA 2 (ELECTRO) 0.69 GM/DL (0.5-1.10); ALPHA 2 RELAT % 13.6 % (4.5-26.0); BETA GLOBULIN (SPE) 0.54 GM/DL (0.60-1.30); BETA RELATIVE % 10.5 % (9.0-22.0); GAMMA GLOBULIN (SPE) 0.33 G/DL (0.70-1.60); GAMMA RELAT % 6.4 % (6.0-22.0)
[2016-07-14 06:32] LABS: HEMATOCRIT 29.7 % (40.0-51.0); HEMOGLOBIN 10.4 g/dL (13.6-17.8); MEAN CORPUSCULAR HEMOGLOB 31.2 pg (26.0-34.0); MEAN CORPUSCULAR VOLUME 89.2 fL (80-100); MEAN PLATELET VOLUME 9.5 fL (9.2-13.0); PLATELET COUNT 148 10/3/uL (150-400); RBC DISTRIBUTION WIDTH 12.9 % (12.0-16.0); RED CELL COUNT 3.33 10/6/uL (4.7-6.1)
[2016-07-14 06:37] LABS: MANUAL DIFF YES %; WHITE BLOOD CELLS 5.9 10/3/uL (4.5-10.5)
[2016-07-14 06:47] LABS: BUN (BLOOD UREA NITROGEN) 12 MG/DL (6-23); CALCIUM, SERUM 8.2 MG/DL (8.5-10.4); CHLORIDE, SERUM 109 MMOL/L (96-112); CO2 (CARBON DIOXIDE) 29 MMOL/L (24-34); CREATININE 0.92 MG/DL (0.70-1.30); GFR AFRICAN AMERICAN 107 ML/MIN (>=60); GFR NON AFRICAN AMERICAN 92 ML/MIN (>=60); GLUCOSE, SERUM 92 MG/DL (60-99); POTASSIUM, SERUM 3.9 MMOL/L (3.5-5.3); SODIUM, SERUM 144 MMOL/L (135-148); VANCOMYCIN TROUGH 12.7 MCG/ML (10.0-20.0)
[2016-07-14 07:24] LABS: BAND NEUTROPHILS 2 %; LYMPHOCYTES 79 %; LYMPHOCYTES ABSOLUTE (CALC) 4.66 10/3/uL (0.67-4.30); MONOCYTES 6 %; MONOCYTES ABSOLUTE (CALC) 0.35 10/3/uL (0.21-1.20); NEUTROPHILS ABSOLUTE (CALC) 0.89 10/3/uL (2.02-8.40); SEGMENTED NEUTROPHIL (0) 13 %; TOTAL NUCLEATED CELLS 100
[2016-07-14 07:25] LABS: PLATELET ESTIMATE SLT DEC (ADEQUATE); RBC MORPHOLOGY NORM (NORMAL)
[2016-07-14 11:19] LABS: BETA 2 MICROGLOBULIN 2.8 MG/L (1.09-2.53)
[2016-07-14 12:25] LABS: HEP B SUR AB QUANTITATIVE < 3.10 mIU/mL (>=10.0)
[2016-07-14 13:05] LABS: HIV COMBO NON-REACTIVE (NON REAC)
[2016-07-15 05:32] LABS: BASOPHILS 0.6 %; BASOPHILS ABSOLUTE 0.03 10/3/uL (0.0-0.16); EOSINOPHILS 0.2 %; EOSINOPHILS ABSOLUTE 0.01 10/3/uL (0.0-0.53); HEMATOCRIT 29.2 % (40.0-51.0); IMMATURE GRANULOCYTES 0.9 %; IMMATURE GRANULOCYTES ABSOLUTE 0.05 10/3/uL (0.0-0.11); LYMPHOCYTES 67.3 %; LYMPHOCYTES ABSOLUTE 3.56 10/3/uL (0.67-4.30); MANUAL DIFF NO %; MEAN CORPUS HGB CONC 34.2 g/dL (32.0-36.0); MEAN CORPUSCULAR HEMOGLOB 30.9 pg (26.0-34.0); MEAN CORPUSCULAR VOLUME 90.1 fL (80-100); MEAN PLATELET VOLUME 9.2 fL (9.2-13.0); MONOCYTES 7.6 %; NEUTROPHILS 23.4 %; NEUTROPHILS ABSOLUTE 1.24 10/3/uL (2.02-8.40); PLATELET COUNT 147 10/3/uL (150-400); RBC DISTRIBUTION WIDTH 12.7 % (12.0-16.0); RED CELL COUNT 3.24 10/6/uL (4.7-6.1); WHITE BLOOD CELLS 5.3 10/3/uL (4.5-10.5)
[2016-07-16 05:11] LABS: BASOPHILS 0.5 %; BASOPHILS ABSOLUTE 0.03 10/3/uL (0.0-0.16); EOSINOPHILS 0.2 %; EOSINOPHILS ABSOLUTE 0.01 10/3/uL (0.0-0.53); HEMATOCRIT 30.2 % (40.0-51.0); HEMOGLOBIN 10.6 g/dL (13.6-17.8); IMMATURE GRANULOCYTES 0.4 %; IMMATURE GRANULOCYTES ABSOLUTE 0.02 10/3/uL (0.0-0.11); LYMPHOCYTES ABSOLUTE 3.53 10/3/uL (0.67-4.30); MEAN CORPUS HGB CONC 35.1 g/dL (32.0-36.0); MEAN CORPUSCULAR HEMOGLOB 31.1 pg (26.0-34.0); MEAN CORPUSCULAR VOLUME 88.6 fL (80-100); MEAN PLATELET VOLUME 9.5 fL (9.2-13.0); MONOCYTES 6.2 %; MONOCYTES ABSOLUTE 0.35 10/3/uL (0.21-1.20); NEUTROPHILS 30.7 %; NEUTROPHILS ABSOLUTE 1.75 10/3/uL (2.02-8.40); PLATELET COUNT 142 10/3/uL (150-400); RED CELL COUNT 3.41 10/6/uL (4.7-6.1); WHITE BLOOD CELLS 5.7 10/3/uL (4.5-10.5)
[2016-07-16 05:12] LABS: MANUAL DIFF NO %
[2016-07-17 06:53] LABS: BASOPHILS 0.6 %; BASOPHILS ABSOLUTE 0.04 10/3/uL (0.0-0.16); EOSINOPHILS 0.2 %; EOSINOPHILS ABSOLUTE 0.01 10/3/uL (0.0-0.53); HEMOGLOBIN 10.9 g/dL (13.6-17.8); IMMATURE GRANULOCYTES 0.3 %; IMMATURE GRANULOCYTES ABSOLUTE 0.02 10/3/uL (0.0-0.11); LYMPHOCYTES 56.1 %; LYMPHOCYTES ABSOLUTE 3.52 10/3/uL (0.67-4.30); MEAN CORPUS HGB CONC 35.2 g/dL (32.0-36.0); MEAN CORPUSCULAR HEMOGLOB 31.5 pg (26.0-34.0); MEAN CORPUSCULAR VOLUME 89.6 fL (80-100); MEAN PLATELET VOLUME 9.6 fL (9.2-13.0); MONOCYTES 6.1 %; MONOCYTES ABSOLUTE 0.38 10/3/uL (0.21-1.20); NEUTROPHILS 36.7 %; NEUTROPHILS ABSOLUTE 2.31 10/3/uL (2.02-8.40); PLATELET COUNT 129 10/3/uL (150-400); RBC DISTRIBUTION WIDTH 12.8 % (12.0-16.0); RED CELL COUNT 3.46 10/6/uL (4.7-6.1); WHITE BLOOD CELLS 6.3 10/3/uL (4.5-10.5)
[2016-07-17 07:04] LABS: MANUAL DIFF NO %
[2016-07-18 06:51] LABS: BASOPHILS 0.5 %; BASOPHILS ABSOLUTE 0.04 10/3/uL (0.0-0.16); EOSINOPHILS 0.1 %; EOSINOPHILS ABSOLUTE 0.01 10/3/uL (0.0-0.53); HEMATOCRIT 31.7 % (40.0-51.0); IMMATURE GRANULOCYTES 0.4 %; IMMATURE GRANULOCYTES ABSOLUTE 0.03 10/3/uL (0.0-0.11); LYMPHOCYTES 53.3 %; LYMPHOCYTES ABSOLUTE 3.93 10/3/uL (0.67-4.30); MEAN CORPUS HGB CONC 34.7 g/dL (32.0-36.0); MEAN CORPUSCULAR HEMOGLOB 30.9 pg (26.0-34.0); MEAN PLATELET VOLUME 10.2 fL (9.2-13.0); MONOCYTES 6.9 %; MONOCYTES ABSOLUTE 0.51 10/3/uL (0.21-1.20); NEUTROPHILS 38.8 %; NEUTROPHILS ABSOLUTE 2.85 10/3/uL (2.02-8.40); PLATELET COUNT 126 10/3/uL (150-400); RBC DISTRIBUTION WIDTH 12.9 % (12.0-16.0); RED CELL COUNT 3.56 10/6/uL (4.7-6.1); WHITE BLOOD CELLS 7.4 10/3/uL (4.5-10.5)
[2016-07-18 06:52] LABS: MANUAL DIFF NO %
[2016-07-19 06:15] LABS: BASOPHILS 0.7 %; BASOPHILS ABSOLUTE 0.05 10/3/uL (0.0-0.16); EOSINOPHILS 0 %; HEMATOCRIT 34.2 % (40.0-51.0); HEMOGLOBIN 11.8 g/dL (13.6-17.8); IMMATURE GRANULOCYTES 0.3 %; IMMATURE GRANULOCYTES ABSOLUTE 0.02 10/3/uL (0.0-0.11); LYMPHOCYTES 56.1 %; LYMPHOCYTES ABSOLUTE 4.12 10/3/uL (0.67-4.30); MANUAL DIFF NO %; MEAN CORPUS HGB CONC 34.5 g/dL (32.0-36.0); MEAN CORPUSCULAR VOLUME 89.8 fL (80-100); MONOCYTES 7.2 %; MONOCYTES ABSOLUTE 0.53 10/3/uL (0.21-1.20); NEUTROPHILS 35.7 %; NEUTROPHILS ABSOLUTE 2.63 10/3/uL (2.02-8.40); PLATELET COUNT 123 10/3/uL (150-400); RED CELL COUNT 3.81 10/6/uL (4.7-6.1); WHITE BLOOD CELLS 7.4 10/3/uL (4.5-10.5)
[2016-07-21 06:28] LABS: BASOPHILS 0.8 %; BASOPHILS ABSOLUTE 0.06 10/3/uL (0.0-0.16); EOSINOPHILS 0 %; HEMATOCRIT 32.7 % (40.0-51.0); HEMOGLOBIN 11.4 g/dL (13.6-17.8); IMMATURE GRANULOCYTES 0.1 %; IMMATURE GRANULOCYTES ABSOLUTE 0.01 10/3/uL (0.0-0.11); LYMPHOCYTES 57.2 %; LYMPHOCYTES ABSOLUTE 4.53 10/3/uL (0.67-4.30); MEAN CORPUS HGB CONC 34.9 g/dL (32.0-36.0); MEAN CORPUSCULAR HEMOGLOB 31.1 pg (26.0-34.0); MEAN CORPUSCULAR VOLUME 89.1 fL (80-100); MEAN PLATELET VOLUME 10.3 fL (9.2-13.0); MONOCYTES 6.3 %; NEUTROPHILS 35.6 %; NEUTROPHILS ABSOLUTE 2.82 10/3/uL (2.02-8.40); PLATELET COUNT 107 10/3/uL (150-400); RBC DISTRIBUTION WIDTH 13.1 % (12.0-16.0); RED CELL COUNT 3.67 10/6/uL (4.7-6.1); WHITE BLOOD CELLS 7.9 10/3/uL (4.5-10.5)
[2016-07-21 06:29] LABS: MANUAL DIFF NO %
[2016-07-21 06:47] LABS: A/G RATIO 1.3 (0.7-1.9); ALBUMIN 3.4 G/DL (3.5-5.0); ALKALINE PHOSPHATASE 120 U/L (45-117); CALCIUM, SERUM 8.8 MG/DL (8.5-10.4); CHLORIDE, SERUM 105 MMOL/L (96-112); CO2 (CARBON DIOXIDE) 28 MMOL/L (24-34); CREATININE 0.94 MG/DL (0.70-1.30); GFR AFRICAN AMERICAN 104 ML/MIN (>=60); GFR NON AFRICAN AMERICAN 90 ML/MIN (>=60); GLOBULIN 2.6 G/DL (2.5-4.1); GLUCOSE, SERUM 103 MG/DL (60-99); POTASSIUM, SERUM 4.3 MMOL/L (3.5-5.3); SGOT(AST) 86 U/L (5-40); SGPT(ALT) 157 U/L (5-65); TOTAL BILIRUBIN 0.5 MG/DL (0-1.2)
[2016-07-21 06:49] LABS: BUN (BLOOD UREA NITROGEN) 18 MG/DL (6-23); SODIUM, SERUM 137 MMOL/L (135-148)
[2016-07-21] MEDS ORDERED: CIP5 PO (08:58)
[2016-07-21] MEDS ORDERED: DSS PO (09:15)
[2016-07-21] MEDS ORDERED: NORCO1 TAB PO (09:15)
== END 2016-07-21 09:27 | disposition home or self-care (01) | DRG 513 ==
LOC: ER 20:15 → 5SO 23:25
PROVIDERS: Hospitalist; Internal Medicine; Internal Medicine Hematology & Oncology; Nurse Practitioner; Orthopaedic Surgery Hand Surgery
PROC: 07DR3ZX Extraction of Iliac Bone Marrow, Percutaneous Approach, Diagnostic (ICD-10-PCS; 2016-07-12)
PROC: 0X6N0Z3 Detachment at Right Index Finger, Low, Open Approach (ICD-10-PCS; principal; 2016-07-12 17:45)
PROC: 0PBT0ZZ Excision of Right Finger Phalanx, Open Approach (ICD-10-PCS; 2016-07-14)
PROC: 0HDFXZZ Extraction of Right Hand Skin, External Approach (ICD-10-PCS; 2016-07-18)
DX: M86.8X4 Other osteomyelitis, hand (principal); C91.10 Chronic lymphocytic leukemia of B-cell type not having achieved remission; L03.011 Cellulitis of right finger; B96.89 Other specified bacterial agents as the cause of diseases classified elsewhere; F17.210 Nicotine dependence, cigarettes, uncomplicated; Z98.1 Arthrodesis status
CPT/HCPCS: 73130-RT; 78815; 80048; 80053; 80202; 82232; 82607; 82728; 82746; 82784; 82962; 83540; 83550; 83605; 83615; 84145; 84155; 84165; 84439; 84443; 84550; 85025; 85045; 85652; 86140; 86334; 86706; 87015; 87040; 87070; 87075; 87077; 87102; 87116; 87186; 87205; 87350; 87389; 88304; 88305; 88307; 88311; 88313; 88333; 88341; 88342; 88367; 93005; 93306; 96365; 96375; 99284; A9270-GY; A9552; J1170; J2250; J2405; J2543; J3010; J3370